=== PATIENT | female | born 1990 | race Caucasian/White ===

== ENCOUNTER 2022-09-21 21:54 | Emergency (ER) | payer MEDICAID ==
[~2022-09-21] VITALS: Ht 157.5 cm; Wt 60.0 kg
[2022-09-21 23:08] VITALS: BP 131/84
[2022-09-22] MEDS ORDERED: ACETAMINOPHEN 325MG TABLET PO ONE (00:15)
[2022-09-22] MEDS ORDERED: HYDR-4001 MT (00:44)
[2022-09-22] MEDS ORDERED: IBUP-2029 MT (00:44)
== END 2022-09-22 01:57 | disposition home or self-care (01) ==
LOC: ER 21:54
DX: S86.012A Strain of left Achilles tendon, initial encounter (principal); Z13.9 Encounter for screening, unspecified; X58.XXXA Exposure to other specified factors, initial encounter; Y93.89 Activity, other specified; Y92.89 Other specified places as the place of occurrence of the external cause; Y99.8 Other external cause status
CPT/HCPCS: 29515; 73630; 99283